=== PATIENT | male | born 1995 | race African-American/Black ===

== ENCOUNTER 2021-12-20 18:17 | Emergency (ER) | payer MEDICAID, SELFPAY ==
[2021-12-20] VITALS (21 sets, daily range): BP systolic 107–134; BP diastolic 64–77; PULSE 74–108; RESP 16–36; TEMP 37.2–39.1; O2SAT 96–100
--- NOTE | ~2021-12-20 | XR_ITS ---
EXAMINATION: XR chest 1V portable Exam Date/Time: 12/20/2021 18:25 CDT HISTORY: nausea, vomiting, 102 FEVER, WORKING OUT IN HEAT TODAY Comparison: None available. RESULT: Lines, tubes, and devices: None. Lungs and pleura: Clear. Cardiomediastinal silhouette: Normal cardiomediastinal silhouette. Other: No acute osseous or upper abdominal finding. IMPRESSION: No acute cardiopulmonary process. Reviewed, dictated and finalized at location K.
--- NOTE | 2021-12-20 18:24 | ECG_ITS ---
Measurements Intervals [place] Rate: 95 P: 67 VA: 156 QRS: 44 QRSD: 106 T: 15 QT: 354 QTc: 447 Interpretive Statements SINUS RHYTHM BORDERLINE ST-T WAVE ABNORMALITY- INFERIOR LEADS BASELINE ARTIFACT- I, II, III, AVR, AVL, AVF, V1-V6 BORDERLINE ECG Electronically Signed On 12-20-2021 22:46:11 CDT by Gerardo Carrion D.O.
[2021-12-20] MEDS: SODIUM CHLORIDE 0.9% IV 1,000 ML 999 ML IV CONT ×3 (18:27→19:08)
[2021-12-20 18:41] LABS: Basophils Percent Auto 0.3 % (0.2-1.2); Eosinophils Percent Auto 0.1 % (0-4.4); Hematocrit 39.8 % (42.0-52.0); Hemoglobin 13.2 g/dL (14.0-18.0); Immature Granulocyte Percent A 0.8 % (0-0.5); Lymphocytes Absolute Auto 0.74 K/mm3 (0.9-3.2); Lymphocytes Percent Auto 5.9 % (18.3-44.2); Mean Corpuscular HGB Conc 33.2 g/dl (32-36); Mean Corpuscular Hemoglobin 27.9 pg (26-34); Mean Corpuscular Volume 84.1 fl (80-100); Mean Platelet Volume 9.5 fl (7.4-10.4); Monocytes Absolute Auto 0.8 K/mm3 (0.1-0.6); Monocytes Percent Auto 6.3 % (2.6-8.5); Neutrophils Absolute Auto 10.9 K/mm3 (1.3-6.7); Neutrophils Percent Auto 86.6 % (45.5-73.1); Platelet Count Result 318 k/mm3 (150-375); Red Blood Count 4.73 M/mm3 (4.6-6.20); Red Cell Distribution Width 13.9 % (11.5-14.5); White Blood Count 12.6 K/mm3 (4.5-10.0)
[2021-12-20 18:52] LABS: INR 1.2; Prothrombin Time 14.3 Seconds (11.1-14.7)
[2021-12-20 18:52] LABS: Alanine Aminotransferase 13 U/L (6-50); Albumin Level 4.3 g/dL (3.5-5.1); Alkaline Phosphatase 68 U/L (38-126); Anion Gap 13 mmol/L (8-16); Aspartate Amino Transferase 20 U/L (17-59); Bilirubin,Total 0.8 mg/dL (0.2-1.3); Blood Urea Nitrogen 8 mg/dL (9-20); Calcium 9.3 mg/dL (8.4-10.2); Carbon Dioxide 22 mmol/L (22-30); Chloride 104 mmol/L (98-107); Creatine Kinase 95 U/L (55-170); Estimated CRCL calculation 74 ml/min; Estimated Glomerular Filt Rate > 60; Glucose 100 mg/dL (65-110); Lipase 55 U/L (23-300); Potassium 3.1 mmol/L (3.4-5.0); Sodium 139 mmol/L (137-145)
[2021-12-20 19:03] LABS: Troponin I < 0.012 ng/mL (0.000-0.034)
--- NOTE | 2021-12-20 19:34 | ED.GENADULT ---
HPI - General Adult General Chief complaint: Environmental Exposure Stated complaint: heat related Time Seen by Provider: 12/20/21 18:25 History of Present Illness HPI narrative: 26-year-old male presenting to the emergency department for evaluation for heat exhaustion. 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 This involves getting the house 244 degrees. And the outside temperature was 100 degrees today. After getting off work patient had onset of lightheaded dizziness with associated nausea and vomiting. Patient denies any chest pain or shortness of breath. Patient's temperature upon arrival was 102. Related Data Home Medications Medication Instructions Recorded Confirmed No Home Medications 12/20/21 12/20/21 Allergies Allergy/AdvReac Type Severity Reaction Status Date / Time No Known Allergies Allergy Verified 12/20/21 18:25 Review of Systems Review of Systems: CONSTITUTIONAL: Denies fever, chills, or sweats. EYES: Denies visual changes, redness, or discharge. ENT: Denies rhinorrhea, congestion, sore throat, or otalgia. CARDIOVASCULAR: Denies chest pain, palpitations, or edema. RESPIRATORY: Denies cough or dyspnea. GASTROINTESTINAL: See HPI GENITOURINARY: Denies dysuria or hematuria. SKIN: Denies rash or itching. MUSCULOSKELETAL: Denies back pain, joint pain, or myalgia. NEUROLOGIC: Denies headache, numbness, or weakness. Exam Narrative: APPEARANCE: Nauseous on initial exam HEAD: normocephalic, atraumatic. EYES: PERRLA/EOMI, conjunctivae clear. NOSE: Normal no drainage EARS:TMS clear with good light reflex. THROAT: Pharynx clear, no exudate. NECK: Supple. No adenopathy, no masses. RESPIRATORY: Airway patent, respirations nonlabored. Clear to auscultation bilaterally, no rales, rhonchi, wheezing. CARDIOVASCULAR: Regular rate and rhythm without murmurs rubs or gallops. ABDOMINAL: Soft, nontender, nondistended, normal bowel sounds MUSCULOSKELETAL: Moves all extremities. Strength/ROM intact, No edema, No calf tenderness. NEURO: Alert. Cranial nerves II through XII intact. Grossly intact SKIN: Warm, dry. Normal Color Course Course Emergency Course: Patient was treated with 3 L of normal saline. Patient is making urine that is clear. Patient's temperature did come down. Patient has no evidence of BIPIN. Patient's potassium was 3.1 and this was replaced orally. Chest x-ray showed no acute cardiopulmonary abnormality. Patient did feel improved with treatment. Patient and family were updated on the results of the work-up and plan for treatment at home. All questions and concerns were addressed. Vital Signs Vital signs: Vital Signs Temperature 102.4 F H 12/20/21 18:21 Pulse Rate 106 H 12/20/21 18:21 Respiratory Rate 25 H 12/20/21 18:21 Blood Pressure 107/64 12/20/21 18:21 Pulse Oximetry 100 12/20/21 18:21 Temperature 99 F 12/20/21 21:10 Pulse Rate 90 12/20/21 21:46 Respiratory Rate 22 H 12/20/21 21:46 Blood Pressure 113/70 12/20/21 21:46 Pulse Oximetry 100 12/20/21 21:46 Medical Decision Making Vital Signs Vital Signs: Vital Signs Temperature 102.4 F H 12/20/21 18:21 Pulse Rate 106 H 12/20/21 18:21 Respiratory Rate 25 H 12/20/21 18:21 Blood Pressure 107/64 12/20/21 18:21 Pulse Oximetry 100 12/20/21 18:21 Temperature 99 F 12/20/21 21:10 Pulse Rate 90 12/20/21 21:46 Respiratory Rate 22 H 12/20/21 21:46 Blood Pressure 113/70 12/20/21 21:46 Pulse Oximetry 100 12/20/21 21:46 Lab Data Lab results reviewed: Yes I reviewed the patient's lab results. Result diagrams: 12/20/21 18:33 12/20/21 18:33 Labs: Lab Results 12/20/21 12/20/21 12/20/21 Range/Units 18:32 18:33 18:33 WBC 12.6 H (4.5-10.0) K/mm3 RBC 4.73 (4.6-6.20) M/mm3 Hgb 13.2 L (14.0-18.0) g/dL Hct 39.8 L (42.0-52.0) % MCV 84.1 (80-100) fl MCH 27.9 (26-34) pg MCH
[2021-12-20] MEDS: ONDANSETRON INJ 4 MG/2 ML VIAL IV PUSH (19:46)
[2021-12-20] MEDS: POTASSIUM CHLORIDE 20 MEQ PACKET (FOR LIQUID) 40 MEQ PO (19:46)
== END 2021-12-20 21:47 | disposition home or self-care (01) ==
PROVIDERS: Emergency Medicine; Emergency Provider Emergency Medicine
DX: T67.5XXA Heat exhaustion, unspecified, initial encounter (principal); X30.XXXA Exposure to excessive natural heat, initial encounter
CPT/HCPCS: 36415; 71045; 80053; 82550; 83690; 84484; 85025; 85610; 85730; 93005; 96361; 96374; 99284; A9270; J2405; J7030